=== PATIENT | female | born 1975 | race Caucasian/White ===

== ENCOUNTER 2024-06-21 16:50 | Emergency (ER) | payer MEDICAID ==
[~2024-06-21] VITALS: Ht 157.5 cm; Wt 90.0 kg
[2024-06-21 17:01] VITALS: O2SAT 100
[2024-06-21] MEDS ORDERED: ACET-2708 MT (19:10)
[2024-06-21] MEDS ORDERED: HYDR-4001 MT (19:10)
[2024-06-21] MEDS ORDERED: IBUP-2028 MT (19:10)
[2024-06-21] MEDS ORDERED: AMOX-494 MT (19:11)
[2024-06-21] MEDS: HYDROCODONE/ACETAMINOPHEN 5/325MG TABLET PO ONE (19:26)
[2024-06-21 19:28] VITALS: BP 154/78; PULSE 72; RESP 16; TEMP 36.7; O2SAT 100
== END 2024-06-21 19:31 | disposition home or self-care (01) ==
LOC: ER 16:50
DX: K08.89 Other specified disorders of teeth and supporting structures (principal); Z98.890 Other specified postprocedural states
CPT/HCPCS: 99283